=== PATIENT | female | born 1955 | race Caucasian/White ===

== ENCOUNTER → 2018-03-29 08:43 | Outpatient (CLI) | payer MEDICARE, MEDICAID, SELFPAY ==
[2018-03-29 12:45] LABS: Folate > 20.0 ng/mL (8.6-20.0); Vitamin B12 363 pg/mL (193-986)
[2018-04-01 10:24] LABS: CEA <0.5 ng/ml
== END ==
PROVIDERS: PCP Internal Medicine; Visit Provider Internal Medicine Hematology & Oncology
DX: C18.9 Malignant neoplasm of colon, unspecified (principal); G62.9 Polyneuropathy, unspecified
CPT/HCPCS: 36415; 82378; 82607; 82746

== ENCOUNTER 2018-05-07 15:09 | Outpatient (REF) | payer MEDICARE, MEDICAID, SELFPAY | END 2018-05-07 15:29 | LOC: NCHCN 15:09 | PROVIDERS: PCP Internal Medicine; Visit Provider Nurse Practitioner Family | DX: N39.0 Urinary tract infection, site not specified (principal) | CPT/HCPCS: 87077; 87086; 87186 ==

== ENCOUNTER 2018-08-02 12:12 | Outpatient (CLI) | payer MEDICARE, MEDICAID, SELFPAY ==
[2018-08-02 13:09] LABS: Abs Immature Grans 0.02 k/cumm (0.0-0.09); Absolute Basophil Count 0.02 k/cumm (0.0-0.2); Absolute Eosinophil Count 0.15 k/cumm (0.0-0.7); Absolute Lymphocyte Count 2.42 k/cumm (1.2-3.4); Absolute Monocyte Count 0.48 k/cumm (0.11-0.7); Absolute Neutrophil Count 5.26 k/cumm (1.2-6.7); Basophils % 0.2; Eosinophils % 1.8; HCT 43.2 % (36.0-46.0); HGB 14.3 g/dL (12.0-15.5); Immature Grans % 0.2; Mean Corp. HGB Concentration 33.1 g/dL (32.0-36.0); Mean Corpuscular Hemoglobin 29.7 pg (27.0-33.0); Mean Corpuscular Volume 89.8 fL (80-95); Mean Platelet Volume 9.6 fL (8.0-11.0); Monocytes % 5.7; Neutrophils % 63.1; Platelet Count 293 x1000/uL (130-400); RBC 4.81 m/cumm (4.00-5.20); White Blood Cell Count 8.35 k/cumm (4.4-10.8)
[2018-08-02 13:21] LABS: ALT 19 U/L (12-78); AST 17 U/L (15-37); Albumin 3.7 g/dL (3.4-5.0); Alkaline Phosphatase 107 U/L (46-116); Anion Gap 8.9 mmol/L (3-11); BUN 11 mg/dL (7-18); Bilirubin, Total 0.4 mg/dL (0.2-1.0); CO2 31.1 mmol/L (21.0-32.0); CREATININE 0.82 mg/dL (0.55-1.02); Calcium 9.2 mg/dL (8.5-10.1); Chloride 103 mmol/L (98-107); Glucose 108 mg/dL (70-100); Potassium 3.8 mmol/L (3.5-5.1); Sodium 143 mmol/L (136-145); Total Protein 7.3 g/dL (6.4-8.2)
[2018-08-05 09:49] LABS: CEA <0.5 ng/ml
== END 2018-08-02 12:32 ==
PROVIDERS: PCP Internal Medicine; Visit Provider Internal Medicine Hematology & Oncology
DX: C18.9 Malignant neoplasm of colon, unspecified (principal)
CPT/HCPCS: 36415; 80053; 82378; 85025

== ENCOUNTER 2018-09-20 10:18 | Outpatient (REF) | payer MEDICARE, MEDICAID, SELFPAY ==
[2018-09-20 19:34] LABS: Amylase 46 U/L (25-115); Anion Gap 6.3 mmol/L (3-11); BUN 11 mg/dL (7-18); CO2 31.7 mmol/L (21.0-32.0); CREATININE 0.92 mg/dL (0.55-1.02); Calcium 9.6 mg/dL (8.5-10.1); Chloride 104 mmol/L (98-107); Glucose 97 mg/dL (70-100); Lipase 188 U/L (73-393); Potassium 4.3 mmol/L (3.5-5.1); Sodium 142 mmol/L (136-145)
== END 2018-09-20 10:38 ==
LOC: NCHCN 10:18
PROVIDERS: PCP Internal Medicine; Visit Provider Nurse Practitioner Family
DX: R10.11 Right upper quadrant pain (principal)
CPT/HCPCS: 80048; 83690; 82150

== ENCOUNTER 2019-04-03 11:10 | Outpatient (CLI) | payer MEDICARE, MEDICAID, SELFPAY ==
[2019-04-03 11:52] LABS: HCT 46.1 % (36.0-46.0); HGB 15.1 g/dL (12.0-15.5); Mean Corpuscular Volume 88.7 fL (80-95)
[2019-04-03 11:53] LABS: Absolute Lymphocyte Count 1.54 k/cumm (1.2-3.4); Absolute Monocyte Count 0.32 k/cumm (0.11-0.7); Absolute Neutrophil Count 6.24 k/cumm (1.2-6.7); Atypical Lymphocytes % 3; Diff Comment Manual Differential; Mean Corp. HGB Concentration 32.8 g/dL (32.0-36.0); Mean Platelet Volume 10.1 fL (8.0-11.0); Platelet Count 345 x1000/uL (130-400); RBC Distribution Width 13.5 % (11.7-14.6); RBC Morphology Normal
[2019-04-03 12:42] LABS: ALT 18 U/L (12-78); AST 17 U/L (15-37); Albumin 4.2 g/dL (3.4-5.0); Alkaline Phosphatase 105 U/L (46-116); Anion Gap 10.8 mmol/L (3-11); BUN 13 mg/dL (7-18); Bilirubin, Total 0.6 mg/dL (0.2-1.0); CO2 27.2 mmol/L (21.0-32.0); CREATININE 0.93 mg/dL (0.55-1.02); Calcium 9.3 mg/dL (8.5-10.1); Chloride 104 mmol/L (98-107); Glucose 93 mg/dL (70-100); Potassium 4.5 mmol/L (3.5-5.1); Sodium 142 mmol/L (136-145); TSH 2.55 uIU/mL (0.36-3.74); Total Protein 7.5 g/dL (6.4-8.2)
[2019-04-07 09:18] LABS: CEA 0.7 ng/ml
== END 2019-04-03 11:30 ==
PROVIDERS: PCP Internal Medicine; Visit Provider Internal Medicine Hematology & Oncology
DX: C79.9 Secondary malignant neoplasm of unspecified site (principal); C18.9 Malignant neoplasm of colon, unspecified; E03.9 Hypothyroidism, unspecified
CPT/HCPCS: 36415; 80053; 82378; 84443; 85025

== ENCOUNTER 2020-10-01 20:18 | Outpatient (REF) | payer MEDICARE, MEDICAID, SELFPAY ==
[2020-10-01 20:01] LABS: FREE T4 0.86 ng/dL (0.76-1.46); TSH 3.27 uIU/mL (0.36-3.74)
[2020-10-03 17:20] LABS: T3, Total 112 ng/dL (97-169)
== END 2020-10-01 20:19 | disposition home or self-care (01) ==
LOC: NCHCN 20:18
PROVIDERS: PCP Internal Medicine; Visit Provider Physician Assistant
DX: E03.9 Hypothyroidism, unspecified (principal)
CPT/HCPCS: 84439; 84443; 84480

== ENCOUNTER 2020-11-10 11:50 | Outpatient (REF) | payer MEDICARE, MEDICAID, SELFPAY ==
[2020-11-10 16:24] LABS: Calculated LDL 129 mg/dL (<100); Cholesterol 216 mg/dL (<200); HDL Cholesterol 44 mg/dL (40-60); TSH 0.79 uIU/mL (0.36-3.74); Triglyceride 216 mg/dL (<150)
[2020-11-10 17:07] LABS: FREE T4 1.17 ng/dL (0.76-1.46)
== END 2020-11-10 11:51 | disposition home or self-care (01) ==
LOC: NCHCN 11:50
PROVIDERS: PCP Internal Medicine; Visit Provider Physician Assistant
DX: E03.9 Hypothyroidism, unspecified (principal)
CPT/HCPCS: 80061; 84439; 84443

== ENCOUNTER 2020-11-26 13:19 | Outpatient (REF) | payer MEDICARE, MEDICAID, SELFPAY ==
[2020-11-26 18:35] LABS: Iron 66 ug/dL (50-170); Total Iron Binding Capacity 293 ug/dL (250-450); Transferrin Sat 23 % (15-50)
[2020-11-26 19:03] LABS: Ferritin 161 ng/mL (8-252); Folate 17.9 ng/mL (8.6-20.0); Vitamin B12 356 pg/mL (193-986)
[2020-11-28 17:16] LABS: T3, Total 136 ng/dL (97-169)
[2020-11-29 08:48] LABS: Vitamin D 25 Total 15.9 ng/mL (30-100)
== END 2020-11-26 13:20 | disposition home or self-care (01) ==
LOC: NCHCN 13:19
PROVIDERS: PCP Internal Medicine; Visit Provider Physician Assistant
DX: R53.83 Other fatigue (principal); E55.9 Vitamin D deficiency, unspecified; K21.9 Gastro-esophageal reflux disease without esophagitis; N95.1 Menopausal and female climacteric states; C18.9 Malignant neoplasm of colon, unspecified
CPT/HCPCS: 82306; 82607; 82728; 82746; 83540; 83550; 84480

== ENCOUNTER 2021-06-15 09:46 | Outpatient (REF) | payer MEDICARE, MEDICAID, SELFPAY | END 2021-06-15 09:47 | disposition home or self-care (01) | LOC: NCHCN 09:46 | PROVIDERS: PCP Internal Medicine; Visit Provider Nurse Practitioner Family | DX: B37.0 Candidal stomatitis (principal) | CPT/HCPCS: 87070 ==

== ENCOUNTER 2021-06-28 15:35 | Outpatient (REF) | payer MEDICARE, MEDICAID, SELFPAY ==
[2021-06-30 13:16] LABS: COVID-19 RT-PCR UVMMC Result Negative (Negative)
== END 2021-06-28 15:36 | disposition home or self-care (01) ==
LOC: NCHCN 15:35
PROVIDERS: PCP Internal Medicine; Visit Provider Nurse Practitioner Family
DX: Z20.822 Contact with and (suspected) exposure to COVID-19 (principal); R09.89 Other specified symptoms and signs involving the circulatory and respiratory systems
CPT/HCPCS: U0003

== ENCOUNTER 2021-11-29 11:24 | Outpatient (REF) | payer MEDICARE, MEDICAID, SELFPAY ==
[2021-11-29 18:50] LABS: TSH (W/Ref FT4) 0.12 uIU/mL (0.36-3.74)
[2021-11-29 19:44] LABS: FREE T4 1.03 ng/dL (0.76-1.46)
== END 2021-11-29 11:25 | disposition home or self-care (01) ==
LOC: NCHCN 11:24
PROVIDERS: PCP Internal Medicine; Visit Provider Physician Assistant
DX: E03.9 Hypothyroidism, unspecified (principal)
CPT/HCPCS: 84439; 84443

== ENCOUNTER 2022-01-03 15:02 | Outpatient (REF) | payer MEDICARE, MEDICAID, SELFPAY ==
[2022-01-03 19:26] LABS: TSH (W/Ref FT4) 0.25 uIU/mL (0.36-3.74)
[2022-01-03 19:43] LABS: FREE T4 0.86 ng/dL (0.76-1.46)
== END 2022-01-03 15:03 | disposition home or self-care (01) ==
LOC: NCHCN 15:02
PROVIDERS: PCP Internal Medicine; Visit Provider Physician Assistant
DX: E03.9 Hypothyroidism, unspecified (principal)
CPT/HCPCS: 84439; 84443

== ENCOUNTER 2022-02-14 15:14 | Outpatient (REF) | payer MEDICARE, MEDICAID, SELFPAY ==
[2022-02-14 20:21] LABS: TSH (W/Ref FT4) 0.62 uIU/mL (0.36-3.74)
== END 2022-02-14 15:15 | disposition home or self-care (01) ==
LOC: NCHCN 15:14
PROVIDERS: PCP Internal Medicine; Visit Provider Physician Assistant
DX: E03.9 Hypothyroidism, unspecified (principal)
CPT/HCPCS: 84443

== ENCOUNTER 2022-12-26 17:53 | Outpatient (REF) | payer MEDICARE, MEDICAID, SELFPAY ==
[2022-12-26 20:00] LABS: ALT 15 U/L (14-59); AST 17 U/L (15-37); Albumin 4.3 g/dL (3.4-5.0); Alkaline Phosphatase 97 U/L (46-116); Anion Gap 6.9 mmol/L (3-11); BUN 10 mg/dL (7-18); Bilirubin, Total 0.7 mg/dL (0.2-1.0); CO2 29.1 mmol/L (21.0-32.0); Calcium 9.6 mg/dL (8.5-10.1); Chloride 105 mmol/L (98-107); Estimated GFR 62.13 (mL/min/1.73m2); Glucose 101 mg/dL (74-106); Potassium 4.6 mmol/L (3.5-5.1); Sodium 141 mmol/L (136-145); TSH 6.19 uIU/mL (0.36-3.74); Total Protein 8.2 g/dL (6.4-8.2)
== END 2022-12-26 17:54 | disposition home or self-care (01) ==
LOC: NCHCN 17:53
PROVIDERS: PCP Internal Medicine; Visit Provider Physician Assistant
DX: E03.9 Hypothyroidism, unspecified (principal); E55.9 Vitamin D deficiency, unspecified; R20.2 Paresthesia of skin
CPT/HCPCS: 80053; 84443

== ENCOUNTER 2023-03-01 09:33 | Outpatient (REF) | payer MEDICARE, MEDICAID, SELFPAY ==
[2023-03-01 20:00] LABS: ALT 14 U/L (14-59); AST 24 U/L (15-37); Albumin 4.3 g/dL (3.4-5.0); Alkaline Phosphatase 94 U/L (46-116); Anion Gap 6.9 mmol/L (3-11); BUN 14 mg/dL (7-18); Bilirubin, Total 0.5 mg/dL (0.2-1.0); CO2 32.1 mmol/L (21.0-32.0); Calcium 9.4 mg/dL (8.5-10.1); Calculated LDL 61 mg/dL (<100); Chloride 105 mmol/L (98-107); Cholesterol 133 mg/dL (<200); Estimated GFR 62.13 (mL/min/1.73m2); Glucose 94 mg/dL (74-106); HDL Cholesterol 47 mg/dL (40-60); Potassium 4.6 mmol/L (3.5-5.1); Sodium 144 mmol/L (136-145); TSH 1.19 uIU/mL (0.36-3.74); Total Protein 8.1 g/dL (6.4-8.2); Triglyceride 127 mg/dL (<150)
[2023-03-01 20:15] LABS: Vitamin D 25 Total 14.9 ng/mL (30-100)
== END 2023-03-01 09:34 | disposition home or self-care (01) ==
LOC: NCHCN 09:33
PROVIDERS: PCP Internal Medicine; Visit Provider Physician Assistant
DX: E03.9 Hypothyroidism, unspecified (principal); E55.9 Vitamin D deficiency, unspecified; E78.5 Hyperlipidemia, unspecified
CPT/HCPCS: 80053; 80061; 82306; 84443

== ENCOUNTER 2024-01-18 12:24 | Outpatient (REF) | payer MEDICARE, MEDICAID, SELFPAY ==
[2024-01-18 19:41] LABS: ALT 14 U/L (14-59); AST 16 U/L (15-37); Albumin 4.1 g/dL (3.4-5.0); Alkaline Phosphatase 89 U/L (46-116); Anion Gap 8.2 mmol/L (3-11); BUN 15 mg/dL (7-18); Bilirubin, Total 0.6 mg/dL (0.2-1.0); CO2 27.8 mmol/L (21.0-32.0); CREATININE 0.9 mg/dL (0.55-1.02); Calcium 9.5 mg/dL (8.5-10.1); Chloride 105 mmol/L (98-107); Estimated GFR 70.07 (mL/min/1.73m2); Glucose 103 mg/dL (74-106); LDL CHOLESTEROL 57 mg/dL (<100); Potassium 4.3 mmol/L (3.5-5.1); Sodium 141 mmol/L (136-145); TSH (W/Ref FT4) 1.06 uIU/mL (0.36-3.74); Total Protein 7.9 g/dL (6.4-8.2)
== END 2024-01-18 12:25 | disposition home or self-care (01) ==
LOC: NCHCN 12:24
PROVIDERS: PCP Internal Medicine; Visit Provider Physician Assistant
DX: E03.9 Hypothyroidism, unspecified (principal)
CPT/HCPCS: 80053; 83721; 84443

== ENCOUNTER 2024-03-17 11:32 | Outpatient (CLI) | payer MEDICARE, MEDICAID, SELFPAY ==
--- NOTE | 2024-03-17 11:00 | DI.RAD_ITS ---
Exam(s) XR PELVIS AP EXAM: XR PELVIS AP CLINICAL HISTORY: L Hip pain. TECHNIQUE: 2D digital imaging was performed. Single AP view. COMPARISON: DX XR PELVIS AND HIP LAT LT from 05/17/2023 FINDINGS: BONES: No acute fracture is present. No bony destructive lesion is seen. JOINTS: No dislocation present. Marked narrowing of the left hip joint space. Moderate periarticular spurring. Mild right hip joint space narrowing and periarticular spurring. SI joints and pubic sym physis are unremarkable. SOFT TISSUE: Normal. IMPRESSION: Stable advanced degenerative changes of the left hip. DATA REPOSITORY: RADIATION DOSE DELIVERED:
== END 2024-03-17 11:33 | disposition home or self-care (01) ==
LOC: DIORS 11:32
PROVIDERS: PCP Internal Medicine; Referring Provider Internal Medicine; Visit Provider Student in an Organized Health Care Education/Training Program
DX: M16.12 Unilateral primary osteoarthritis, left hip
CPT/HCPCS: 99203; 72170

== ENCOUNTER 2024-03-17 12:35 | Outpatient (CLI) | payer MEDICARE, MEDICAID, SELFPAY ==
[2024-03-17 12:52] LABS: HCT 44.2 % (36.0-46.0); HGB 14.2 g/dL (11.2-15.7); MCH 29.4 pg (27.0-33.0); MCHC 32.1 % (32.0-36.0); MCV 92 fL (80-95); MPV 9.4 fL (8.0-11.0); Platelet Count 306 10^3/uL (130-400); RBC 4.83 10^6/uL (3.93-5.22); RDW 12.8 % (11.7-14.6); RDW-SD 42.5 fL; WBC 7.48 10^3/uL (4.4-10.8)
[2024-03-17 13:13] LABS: Anion Gap 7.6 mmol/L (3-11); BUN 8 mg/dL (7-18); CO2 30.4 mmol/L (21.0-32.0); CREATININE 0.9 mg/dL (0.55-1.02); Calcium 9.1 mg/dL (8.5-10.1); Chloride 108 mmol/L (98-107); Estimated GFR 70.07 (mL/min/1.73m2); Glucose 102 mg/dL (74-106); Potassium 4.3 mmol/L (3.5-5.1); Sodium 146 mmol/L (136-145)
== END 2024-03-17 12:36 | disposition home or self-care (01) ==
LOC: LBO 12:35
PROVIDERS: PCP Internal Medicine; Visit Provider Student in an Organized Health Care Education/Training Program
DX: M16.12 Unilateral primary osteoarthritis, left hip (principal); Z01.818 Encounter for other preprocedural examination
CPT/HCPCS: 36415; 80048; 85027; 99203; 72170

== ENCOUNTER 2024-03-25 10:32 | Observation (INO) | payer MEDICARE, MEDICAID, SELFPAY ==
[2024-03-25] VITALS (26 sets, daily range): BP systolic 99–137; BP diastolic 54–87; PULSE 65–86; RESP 12–114; TEMP 35.8–36.5; O2SAT 92–99; BMI 27.4
[2024-03-25] MEDS: Gabapentin 300 MG CAP PO (09:00)
[2024-03-25] MEDS: Celecoxib 200 MG CAP 400 MG PO (09:00)
[2024-03-25] MEDS: Acetaminophen 500 MG TAB 1000 MG PO ×2 (09:00→19:43)
[2024-03-25] MEDS: Lactated Ringers 1,000 ML 80 ML IV (09:11)
--- NOTE | 2024-03-25 09:46 | W.ANESPRE ---
General Info Date of Service Date Performed: 03/25/24 Height: 5 ft 9 in Weight: 84.3 kg Body Mass Index (BMI): 27.4 Surgical Procedure: Operation Date: 03/25/24 11:05 Proposed Procedure Side Surgeon p Hip Total Hip Anterior Left Tee Ireland MD Meds Allergies and Home Medications Allergies Allergy/AdvReac Type Severity Reaction Status Date / Time oxaliplatin Allergy Severe Other (See Verified 03/25/24 08:52 Comment) Sulfa (Sulfonamide Allergy Intermediate Skin Rash Verified 03/25/24 08:52 Antibiotics) adhesive tape Allergy Unknown Other (See Verified 03/25/24 08:52 Comment) cefaclor (From Ceclor) Allergy Unknown Skin Rash Verified 03/25/24 08:52 clindamycin Allergy Unknown Skin Rash Verified 03/25/24 08:52 amoxicillin Allergy Skin Rash Verified 03/25/24 08:52 Penicillins Allergy Anaphylaxsi Verified 03/25/24 08:52 s Home Medication ?Medication ?Instructions ?Recorded levothyroxine 100 mcg tablet 100 mcg PO DAILY 10/30/16 acetaminophen 325 mg tablet 650 mg PO Q4H PRN 08/24/17 (Tylenol) estradiol 0.5 mg tablet 0.5 mg PO DAILY 08/24/17 ibuprofen 200 mg capsule 200 mg PO Q4H PRN 08/24/17 ondansetron 4 mg disintegrating 8 mg PO Q8H PRN 08/24/17 tablet (Zofran ODT) albuterol sulfate 90 mcg/actuation 2 puff inhalation Q6H PRN 01/29/23 aerosol inhaler (Ventolin HFA) cyclobenzaprine 5 mg tablet 5 - 10 mg PO QHS 01/29/23 fluticasone propionate 50 1 spray intranasal DAILY 01/29/23 mcg/actuation nasal spray,suspension (Allergy Relief (fluticasone)) omeprazole 20 mg capsule,delayed 20 mg PO DAILY 01/29/23 release rosuvastatin 10 mg tablet (Crestor) 10 mg PO DAILY 01/29/23 celecoxib 100 mg capsule (Celebrex) 100 mg PO BID 01/22/24 cholecalciferol (vitamin D3) 25 25 mcg PO DAILY 01/22/24 mcg (1,000 unit) capsule ergocalciferol (vitamin D2) 1,250 1,250 mcg PO QWEEK 01/22/24 mcg (50,000 unit) capsule Current Visit Medications: Current Medications Generic Name Dose Route Start Last Admin Trade Name Jerrell PRN Reason Stop Dose Admin Acetaminophen 1,000 mg 03/25/24 06:00 03/25/24 09:00 Acetaminophen 500 Mg Tab PO 03/25/24 23:59 1,000 mg PREOP CHLOE Administration Celecoxib 400 mg 03/25/24 06:00 03/25/24 09:00 Celecoxib 200 Mg Cap PO 03/25/24 23:59 400 mg PREOP CHLOE Administration Gabapentin 300 mg 03/25/24 06:00 03/25/24 09:00 Gabapentin 300 Mg Cap PO 03/25/24 23:59 300 mg PREOP CHLOE Administration Ringer's Solution 1,000 mls @ 80 mls/hr 03/25/24 06:00 03/25/24 09:11 IV 03/25/24 23:59 80 mls/hr INFUSION CHLOE Administration Cefazolin Sodium/Dextrose 2 gm in 50 mls @ 100 mls/hr 03/25/24 06:00 Ancef Duplex IVPB 03/25/24 23:59 PREOP CHLOE Tranexamic Acid/Sodium Chloride 1,000 mg in 100 mls @ 600 mls/hr 03/25/24 06:00 IVPB 03/25/24 23:59 PREOP CHLOE IV Miscellaneous Supplies 1 each 03/25/24 06:00 Iv Access IV 03/25/24 23:59 DIRECTED CHLOE Sodium Chloride 0 ml 03/25/24 06:00 Normal Saline Flush 10 Ml Syr IV 03/25/24 23:59 PRN PRN Sodium Chloride 0 ml 03/25/24 06:00 Normal Saline 10 Ml Vial IJ 03/25/24 23:59 DIRECTED PRN Sterile Water 0 ml 03/25/24 06:00 Water,Injection,Sterile 10 Ml Vial IJ 03/25/24 23:59 DIRECTED PRN PFSH Active Problems Active Problems: Problem Status Onset Code Osteoarthritis of left hip Acute M16.12 Medical History Medical History Depression with anxiety Goiter, nontoxic, multinodular Vitamin D deficiency Hearing loss, bilateral COLE (obstructive sleep apnea) Adenocarcinoma of cecum Abnormal mammogram of right breast Hot flashes Liver nodule GERD (gastroesophageal reflux disease) Left hip pain Chronic low back pain Chronic sinusitis Osteoarthritis Left knee pain Aortic dilatation Rib pain on left side Left breast mass Breast pain, left COVID-19 Left groin pain Family history of heart disease Sinusitis Lumbosacral spondylosis with radiculopathy Hx of colon cancer, stage IV Hypothyroidism Fibromyalgia 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 Essential tremor Depression with anxiety RA (rheumatoid arthritis) Surgical History Surgical History S/P BONNIE-BSO (total abdominal hysterectomy and bilateral salpingo-oophorectomy) ex-lap with omentectomy and HIPEC 02/2017 Mediport placement 10/2016 Abdominal hysterectomy Colectomy Right Hemicolectomy 09/2016 Bilateral salpingectomy with oophorectomy Tobacco Smoking/Tobacco Use Status: Never Alcohol Alcohol Intake: current Alcohol intake frequency: holidays/special occasions only Substance Use Substance use: Never Substance use type: does not use Vital Signs and Lab Results Vital Signs Most Recent Vital Signs in EMR: Most Recent Vital Signs Temp Pulse Resp BP Pulse Ox 36.2 C L 78 16 137/87 97 03/25/24 08:35 03/25/24 08:35 03/25/24 08:35 03/25/24 08:35 03/25/24 08:35 Lab Results Blood Type / Crossmatch: No Data to Display Complete Blood Count: White Blood Count 7.48 10^3/uL (4.4-10.8) 03/17/24 12:07 Red Blood Count 4.83 10^6/uL (3.93-5.22) 03/17/24 12:07 Hemoglobin 14.2 g/dL (11.2-15.7) 03/17/24 12:07 Hematocrit 44.2 % (36.0-46.0) 03/17/24 12:07 Platelet Count 306 10^3/uL (130-400) 03/17/24 12:07 Complete Metabolic Panel: Sodium 146 mmol/L (136-145) H 03/17/24 12:07 Potassium 4.3 mmol/L (3.5-5.1) 03/17/24 12:07 Chloride 108 mmol/L (98-107) H 03/17/24 12:07 Carbon Dioxide 30.4 mmol/L (21.0-32.0) 03/17/24 12:07 BUN 8 mg/dL (7-18) 03/17/24 12:07 Creatinine 0.9 mg/dL (0.55-1.02) 03/17/24 12:07 Est GFR (CKD-EPI 2020) 70.07 (mL/min/1.73m2) 03/17/24 12:07 Calcium 9.1 mg/dL (8.5-10.1) 03/17/24 12:07 Glucose 102 mg/dL (74-106) 03/17/24 12:07 Liver Function Panel: No Data to Display Coagulation Panel: No Data to Display Cardiac Panel: No Data to Display Arterial Blood Gas: No Data to Display Venous Blood Gas: No Data to Display Pancreas Panel: No Data to Display Thyroid Panel: No Data to Display Infectious Disease: No Data to Display Blood Cultures: No Data to Display Toxicology Panel: No Data to Display Anesthesia Assessment and Plan Anesthesia History Personal History: No History of Anesthesia Complications Family History: No Family History of Anesthesia Complications Exercise Tolerance Exercise Tolerance: Metabolic Equivalents>4 Cardiac & Pulmonary Exam Cardiac Exam: Normal S1/S2 Heart Sounds Pulmonary Exam: Clear Bilateral Breath Sounds Implantable Cardiac Device Does patient have a Pacemaker or an ICD?: No Airway Exam Known Difficult Airway: No Mallampati Class: 2 Mouth Opening: Normal (> 3cm) Thyromental Distance: Greater than 3 cm Neck Range of Motion: Full ROM Neck Circumference: Normal Teeth Condition: Removable Dentures/Plates Upper and Removable Dentures/Plates Lower ASA Classification ASA Score: ASA 2 Emergency Case?: No NPO Status NPO Status: NPO Clears >2 hours, Solids >8 hours Anesthesia Plan Resuscitation Status: Full Code Anesthesia Technique: Spinal Anesthesia Airway Planned: Natural Airway Monitors Used: Standard Monitors Preoperative Comments:: Difficult/failed SAB in the past, will plan to attempt x2 today and then proceed to GA if necessary.
[2024-03-25] MEDS: ceFAZolin 2 GM/50 ML BAG IVPB (12:26)
[2024-03-25] MEDS: TRANEXAMIC ACID/SOD. CHL. 1,000 MG/100 ML BAG 600 MG IVPB (12:32)
--- NOTE | 2024-03-25 13:26 | DI.RAD_ITS ---
Exam(s) XR HIP LT IN OR EXAM: XR HIP LT IN OR CLINICAL HISTORY: left hip osteoarthritis. TECHNIQUE: 2D and realtime digital imaging was performed. COMPARISON: CR XR PELVIS AP from 03/17/2024 FINDINGS: A hard copy image shows placement of a left hip prosthesis. The alignment appears satisfactory. Please see procedure note for details. Fluoro time: 54.7seconds RADIATION DOSE DELIVERED: Ka,r=5.7 mGy
--- NOTE | 2024-03-25 13:40 | ROE_ITS ---
Date of service: 03/25/24 Time of Service: 12:20 Operative Note Operative Note DATE OF PROCEDURE: 03/25/24 PRE-OP DIAGNOSIS: Left Hip Osteoarthritis POST-OP DIAGNOSIS: same PROCEDURE: Left Anterior Total Hip Arthroplasty with Intraoperative Navigation SURGEON: Tee Ireland OFFSET PRINTER: Delia Raygoza ANESTHESIA TYPE: Spinal Refer to Anesthesia Record ESTIMATED BLOOD LOSS: 550 PATHOLOGY: none sent TOURNIQUET TIME: 0 COMPLICATIONS: None Patient was transported to: PACU Patient's condition: stable Implants: 1. Depuy [place] Acetabular Component, 58mm 2. Depuy Acetabular Liner, [id number] 3. Depuy Actis Standard Collared Femoral Stem, Size 6 4. Depuy Altrx Ceramic Femoral Head, Size 36+8.5mm Indications: I have seen Terra in clinic for symptoms of hip arthritis, confirmed with radiographic findings. She has exhausted nonoperative methods and was having significant limitations in daily function and desired better function and less pain. I discussed the technical details of a hip replacement. I explained the risks of the procedure to include, but not limited to, bleeding, infection, pain, stiffness, fracture, damage to nerves and vessels, damage to muscles and tendons, loosening, instability, leg length inequality, need for repeat procedure, blood clot and cardiopulmonary demise. Despite these risks, Terra elected to proceed. Findings: There was significant signs of arthritis throughout the hip involving the femoral head/neck and acetabulum. Procedure Description: Terra was greeted in the preoperative holding area where the correct side was identified and marked. The consent was reviewed with the patient and signed. The history and physical was updated. All questions were answered. She was taken back to the operating room. A spinal anesthestic was then administered. The feet were wrapped with cast padding and Coban and then placed into the boot liners and then into the boots. Care was taken to protect the skin and make sure the heels were fully down and the boots were stable. The patient was then positioned onto the HANA table. Both legs were held in a neutral position. SCDs were applied. The patient was then slid down onto a peroneal post. Prophylactic antibiotics in the form of Cefazolin were administered. 1g of Tranxemic Acid was given intravenously within 30 minutes of incision. The left leg was then prepped with Chloraprep and draped in a standard fashion. A second prep with Chloraprep was performed prior to placement of a shower-curtain type drape with Iodine impregnated skin pr otection. A timeout to confirm correct identity, side and site, procedure, allergies, anesthesia, and medical concerns was performed. An obliquely oriented incision was made starting lateral to the ASIS and running distal over the Tensor Fascia Katie (TFL) muscle belly toward the fibular head, approximately 10cm. The skin and soft tissue was dissected sharply, through Alex?s fascia, and to the fascia of the TFL. With the fascia and superior border of the IT band identified, the fascia was incised with a new knife just above any perforators from the IT band. The TFL muscle belly was bluntly dissected away from the fascia and moved laterally. The fat between TFL and rectus was identified to ensure the dissection was not within the TFL. Blunt dissection created space between abductors and the capsule and retractor was placed over the lateral femoral neck. The fibers of the rectus femoris tendon were identified and these were freed from the anterior capsule. A second cobra retractor was placed around the medial femoral neck. The TFL was further retracted laterally to show the deep fascia. Careful dissection through this layer identified three main crossing vessels of the lateral femoral circumflex. These were cauterized in multiple locations and then cut without any noticeable bleeding. The TFL was further released bluntly from the deep fascia to expose anterior hip capsule and fat A soft tissue retractor was then placed beneath the TFL and against sartorius and medial soft tissues to protect and retract the soft tissues. A T-capsulotomy was then performed starting at the superior lateral acetabulum and moving distally to the intertrochanteric ridge. These capsular flaps were tagged with a No. 1 Ethibond and elevated from within. The capsular flaps were released to the shoulder of the lateral neck and to the lesser trochanter to give excellent visualization of the proximal femur. A neck osteotomy was performed using an oscillating saw based on preoperative templates. This cut started in the shoulder and of the lateral neck and exited medially. The saw was at all times directed medially to avoid injury to the greater trochanter. Gross traction was applied to the leg and the osteotomy opened. The femoral head was removed with a corkscrew, making sure to protect the TFL on its exit. Traction was released after head removal. This was measu red on the back table to determine the starting reamer size. Portions of the rectus obscuring visualization were minimally elevated off the superior acetabulum. An anterior retractor was placed over the anterior wall between capsule and labrum and attached to the Gripper retraction system. The femur was rotated to 90 degrees and medial capsule was fully released until the lesser trochanter was palpable and visible; the femur was returned to 30 degrees. A posterior retractor was placed similarly between capsule and labrum. This provided excellent visualization. The contents of the cotyloid fossa were removed with electrocautery and the labrum was removed with a knife. There was a notable floor osteophyte. There was significant chondromalacia of the superior acetabulum. Acetabular reaming began with a 52mm reamer. This first reaming was directed anterior to posterior and medial to get down to the true floor. This was inspected and reamed until the true floor was reached. The anterior retractor was then released and entry and exit was provided by traction on the capsular flaps. I then reamed sequentially up to a 58mm reamer where good fit was obtained. The larger reamers were oriented based on anatomical reference of the anterior and lateral rosales to ensure proper abduction and anteversion. Positioning and size was confirmed with the fluoroscopy. A 58mm Depuy [place] acetabular component was selected. The acetabulum was reamed around the periphery with the selected acetabular size to prevent a rim fit. The deep tissues were irrigated. The acetabular component was then impacted in a position of about 40-45 degrees of abduction and 15-20 degrees of anteversion, using the patient?s anatomy as the ultimate landmark. Fluoroscopy was used to confirm this. There was excellent citizenship instructor of the acetabular component and the inserting handle was removed. The acetabular liner, Depuy [id number] polyethylene liner, was inserted and lined up with the tines of the acetabular component. There was no soft tissue interposition. The liner was then impacted into position and confirmed to be well-seated. A portion of the sindi-articular cocktail was then injected around the acetabulum into the capsule and periosteum. This cocktail consisted of 123mg of Ropivacaine, 0.25mg of Epinephrine, 0.04mg of Clonidine, and 15mg of Ketorolac, diluted to 50cc. The leg was rotated to 120 degrees. Any remaining medial capsule was released until the lesser trochanter was easily palpable. A retractor was placed medially. The lateral capsule was further released into the shoulder to allow access to the greater trochanter. A Lipscomb retractor was placed over the greater trochanter which allowed the trochanter to flip in front of the capsule for excellent exposure. The leg was brought down into maximal extension and 20 degrees of adduction while ensuring there was no impingement on the acetabulum. Any remnant capsule within the trochanter was released. Piriformis and obturator externis were identified and protected. There was excellent access to the proximal femur. The lateral neck remnant was removed with a rongeur. A blunt canal probe was used to identify the canal and trajectory for later broaching. A box osteotome initiated the broach course. A small curved rasp and a curved curette were used to work laterally. Broaching then began with a starter Actis broach. This was inserted manually around the trochanter and into the canal before mallet blows. The broach was seated to a few millimeters below the cut level based on the neck cut and the preoperative template. Sequential broaching was continued with the [employer] pneumatic broaching device until a tight fit was obtained with good rotational control of the femur. A trial standard neck was inserted along with a +5 trial head. The leg was brought out of extension and adduction and then reduced with traction and internal rotation. The leg was stable anteriorly in a position of 30 degrees of extension and 90 degrees of external rotation. Fluoroscopy was used to ensure there was no fracture and the stem was seated well. Leg lengths were checked with an AP pelvis and pelvic reference points. Fonix navigation system was used to confirm appropriate positioning and leg length and offset. This over-crrected the leg length and undercorrected the total offset, improved with a +8.5mm head and advanced 6-7mm. Once content with the desired offset and leg lengths, the leg was brought back into extension, external rotation and adduction. The broaching was advanced 6 to 7 mm and the surface planed. The periosteum and surrounding tissue was injected with remaining portion of the sindi-articular cocktail. The proximal femur was irrigated as well as the deep tissues. The [employer] thredUPis standard collared stem, size 6, was then manually inserted into the proximal femur making sure to control rotation. It was then malleted into position with light blows, giving breaks to allow bone expansion and decrease risk of fracture. The selected Depuy Altrx Ceramic Head, size 36+8.5mm, was then placed onto the clean and dry trunnion and secured with impaction onto the tapered fit. The leg was brought back out of extension and adduction and reduced with traction and internal rotation. Stability was confirmed with no shuck at 90 degrees of external rotation and 30 degrees of extension. No impingement through range of motion arc. Final x-ray images were obtained with fluoroscopy to confirm adequate positioning and no intraoperative fracture. There was notable oozing during the case. There is no specific bleeding. Most the bleeding seem to be coming from the proximal femur. She remained stable during the case. The deep tissues were thoroughly irrigated with Surgiphor, betadine solution. This was allowed to sit in the wound for 3 minutes before being thoroughly irrigated out with normal saline. The capsule was then reapproximated with the previously placed Ethibond sutures. The TFL fascia was finally closed with a No. 2 Stratafix, barbed suture. Deep tissues were then reapproximated with 0 Vicryl and a running 2-0 Vicryl. The skin was closed with a running 4-0 Monocryl in a subcuticular fashion. This was reinforced with skin glue. A Mepilex silver dressing was applied. At the end of the case, all counts were correct. Terra was transferred to the hospital bed without difficulty and suffering no apparent complication. Terra has a good prognosis. Physical therapy will start today and without restrictions, weight-bearing as tolerated. Aspirin 81mg BID will be used for DVT prophylaxis.
[2024-03-25] MEDS: oxyCODONE 5 MG TAB PO ×2 (14:59→23:24)
--- NOTE | 2024-03-25 15:04 | W.ANESPOSTOP ---
Postoperative Evaluation Date, Time and Location Date Performed: 03/25/24 Time Performed: 15:04 Patient Location: Day Surgery Unit Vital Signs Most Recent Imported Vital Signs: Most Recent Vital Signs Temp Pulse Resp BP Pulse Ox 35.8 C L 70 16 119/71 94 03/25/24 14:38 03/25/24 14:38 03/25/24 14:38 03/25/24 14:38 03/25/24 14:38 Pain Score Most Recent Pain Score: Most Recent Pain Score Pain Level 0 03/25/24 14:38 Assessment Mental Status: Awake (Alert & Oriented to Patient Baseline) Airway and Respiratory Function: Patent airway with normal (patient baseline) respiratory exam Cardiovascular Function: Hemodynamically Stable Hydration Status: Adequately Hydrated Nausea & Vomiting: No Nausea or Vomiting Pain: Pain is Moderate or Severe Postoperative Pain Management: Pain being addressed with medication Peripheral Nerve Block: Patient did not receive a nerve block
[2024-03-25] MEDS: Normal Saline Flush 10 ML SYR IV ×4 (15:22→19:44)
[2024-03-25] MEDS: fentaNYL 100 MCG/2 ML VIAL IVP ×2 (15:22→15:41)
[2024-03-25] MEDS: Methocarbamol 500 MG TAB PO (15:36)
--- NOTE | 2024-03-25 15:50 | IN_ITS ---
PT Notes Visit Reasons: Left hip DJD Inpatient Physical Therapy Evaluation Date: 03/25/2024 Referring Doctor: Dr Ireland PT Orders: PT CONSULT: Evaluate post op for safe discharge to home Precautions: WBAT LLE Patient Profile/Admitting Diagnosis: Terra is 68 yo female referred for PT evaluation s/p L DRE anterior approach on 03/25/2024 under spinal anesthesia d/t OA. Post op complicated by pain, nausea and lightheadedness. PMHX: Depression with anxiety,Goiter, nontoxic, multinodular,Vitamin D deficiency Hearing loss, bilateral,COLE (obstructive sleep apnea),Adenocarcinoma of cecum,Abnormal mammogram of right breast Hot flashes,Liver nodule,GERD (gastroesophageal reflux disease),Left hip pain,Chronic low back pain,Chronic sinusitis,Osteoarthritis Left knee pain,Aortic dilatation,Rib pain on left side,Left breast mass,Breast pain, left; COVID-19;Left groin pain;Family history of heart disease; Sinusitis;Lumbosacral spondylosis with radiculopathy;Hx of colon cancer, stage IV;Hypothyroidism;Fibromyalgia Neuropathy due to chemotherapeutic drug;Essential tremor- hands;Depression with anxiety;RA (rheumatoid arthritis) Social History/Home Situation: Patient lives with her in a ranch style home with 3 steps to enter with bilateral rails. She is independent ambulating independent ADLs. She is retired. Her works full-time. Her sister will be staying with her during the day. Current Functional Limitations: impaired bed mobility, transfers, ambulation, ADLs, IADLs Equipment Owned/DME: cane/RW Subjective: Objective: General Observation: pale female semi-reclined, drowsy Mental Status: A+Ox4 Pain: Left hip 5/10 on Numeric Pain scale Vital Signs: 124/64 initially; 98/58 post standing ( nauseous/ lightheaded) ROM: Left Lower Extremity:hip flexion 100degrees ; abduction 15 degrees , knee and ankle WNL Strength: BUE: grossly 5/5 Right Lower Extremity: 5/5 Left Lower Extremity: hip flexion,abduction, extension3-/5; knee ext: >/= to 3/5 ankle 3/5 Sensation: intact to light touch and deep pressure LLE Bed Mobility/Transfers: supine - sit Min A for LE sit-supine min A for LE scooting Independent sit - stand CGA stand to sit CGA transfer with FWW min A Gait: with FFW 2 steps min A step to pattern with small steps. pt became nauseuous and lightheaded ambulation discontinued Stairs: dependent / unable at this time d/t lightheadedness Balance: Static Sitting: Normal Dynamic Sitting: good- Static Standing: Fair Dynamic Standing: Fair - Special Tests: Mobility Limitations Standardized Measure [facility] AM-PAC 6 clicks Basic Mobility Inpatient Short Form: Raw Score: 14 Standardized Score: [] CMS Score: 61.91% Informed Consent/Education: Patient instructed in purpose of PT consult and plan of care. Patient instructed in initial home exercise program including ankle pumps, glutes sets, quad sets and seated long arc quads. Assessment: Patient is a 68year old female referred to physical therapy services with the diagnosis of L DRE. Patient presents with clinical signs and symptoms consistent with post surgical intervention, as demonstrated by the following impairment level findings: pain, ROM, strength, balance. Impairments are contributing to the following functional limitations: AMPAC score. Due to postop pain nausea and lightheadedness, pt is not recommended to return to home at this time. MD is in agreement. Patient is assessed as a [X] Low 38853 [] Moderate 14404 [] High 33786 complexity based on the following: History: [X] Examination: [X] Presentation: [X] Decision Making: [X] Goals: Goals X1 -2 days 1. Supine-Sit [independent] 2. Sit-Supine [independent] 3. Sit-Stand [independent] 4. Stand-Sit [independent] 5. Bed-Chair [supervision with FFW] 6. Chair-Bed [supervision with FFW] 7. Gait [supervision with FF W greater than 50 feet x 2] 8. Stairs [supervised 3 stairs with 2 rails] 9. Independent with home exercise program [] 10.Balance good minus Plan of Care/Treatment Plan: 1-2x/days Plan of care has been reviewed with the SOCIAL MEDIA DESIGNER providing the service under Physical Therapy direction. Initiate Physical Therapy intervention for strengthening, bed mobility, transfers, gait, stairs, balance training, use of assistive device. DISCHARGE RECOMMENDATIONS: [x] Home with outpatient PT when medically stable TREATMENT CODE/TIME: [04859 x1/ 32 minutes Please sign an return this page within 30 days if you agree with the above POC. Thank you! Physician Signature Date [facility]
--- NOTE | 2024-03-25 16:06 | SUR.PHASEII ---
Addendum entered by Sophia Church RN 03/25/24 17:12: 1700 Pt was not able to complete PT exercises, stood at bedside and became very nauseous. visited pt and placed orders for admission to [facility]. Addendum entered by Sophia Church RN 03/25/24 16:50: 1630 Pt states pain is 7/10 and more tolerable. Pt tolerating PO intake well. Pt attempting to work with PT, visited pt and encouraged her to get up and work with PT as this may help her pain significantly. Pt removed from continuous cardiac and spO2 monitoring Original Note: 1438 Pt returned to DSU, phase 2. Sleepy but arousable. VS WDL. 1458 Pt writing in pain, unable to use numeric scale for pain level. Unable to sit still. VS still WDL. 10mg Oxycodone PO PRN given to patient per order set. and SONYA notified. 1515 Kris HASSAN assessed patient, ordered IVP Fenanyl and PO Robaxin for patient. Pt placed on continuous cardiac and spO2 monitoring. 1522 [place] MOORE administered 50mcg Fentanyl IVP per order set. 1536 Sophia MOORE administered 500mg Robaxin PO per order set. 1541 [place] MOORE administered 25mcg Fentanyl IVP per order set.
[2024-03-25] MEDS: ceFAZolin 1 GM/50 ML BAG IVPB (17:10)
[2024-03-25] MEDS: Tranexamic Acid 650 MG TAB 1300 MG PO (17:24)
[2024-03-25] MEDS: Ketorolac 15 MG/ML VIAL IV (18:32)
[2024-03-25] MEDS: Aspirin E.C. 81 MG TABEC PO (19:42)
[2024-03-26] MEDS: ceFAZolin 1 GM/50 ML BAG IVPB ×2 (01:11→07:56)
[2024-03-26] MEDS: Ketorolac 15 MG/ML VIAL IV ×2 (01:11→09:54)
[2024-03-26] MEDS: Normal Saline Flush 10 ML SYR IV (01:12)
[2024-03-26 03:35] VITALS: BP 120/69; PULSE 60; RESP 18; TEMP 36.4; O2SAT 96
[2024-03-26] MEDS: Levothyroxine 100 MCG TAB PO (06:00)
[2024-03-26 07:29] VITALS: BP 101/64; PULSE 70; RESP 18; TEMP 36.6; O2SAT 95
[2024-03-26] MEDS: Fluticasone NASAL SPRAY 16 GM BTL NS (08:00)
[2024-03-26] MEDS: oxyCODONE 5 MG TAB PO (08:01)
[2024-03-26] MEDS: Dexamethasone 4 MG TAB PO (08:01)
[2024-03-26] MEDS: Acetaminophen 500 MG TAB 1000 MG PO (08:01)
[2024-03-26] MEDS: Omeprazole 20 MG CAPCR PO (08:01)
[2024-03-26] MEDS: Rosuvastatin 10 MG TAB PO (08:01)
[2024-03-26] MEDS: Aspirin E.C. 81 MG TABEC PO (08:01)
--- NOTE | 2024-03-26 09:05 | DSE_ITS ---
Date of service: 03/26/24 Time of Service: 07:30 Discharge Plan Disposition Patient Disposition: Home Condition: Good Discharge Details Reason For Visit: Left hip DJD Admit Date/Time: 03/25/24 17:00 Admit Provider: Tee Ireland Attending Provider: Tee Ireland Primary Care Provider: [facility] Course Hospital Course: Patient was admitted to the medical/surgical floor following the procedure. The surgery was tolerated well without any notable medical, surgical, or anesthetic complications, however, she had notable lightheadedness and nausea postoperatively.. Mobilization began postoperatively but was postponed to postop day #1 where she did much better and was able to ambulate overnight with nursing. She was voiding spontaneously. Vitals were stable. Physical therapy worked with the patient and was cleared for discharge home. No acute medical issues. Pain was controlled on oral regimen. Home Meds and New Rx's Prescriptions: New celecoxib [Celebrex] 200 mg capsule 200 mg PO BID PRNQty: 60 0RF Rx Instructions: Take one tablet twice daily for pain and inflammation aspirin 81 mg tablet,delayed release (DR/EC) 81 mg PO BID 30 Days Qty: 60 0RF acetaminophen 500 mg tablet 1,000 mg PO Q8H PRN Qty: 90 0RF Rx Instructions: Take two tablets up to every 8 hours as needed for pain dexamethasone 4 mg tablet 4 mg PO DAILY Qty: 2 0RF Rx Instructions: Take one tablet once daily for two days docusate sodium [Colace] 100 mg capsule 100 mg PO BID Qty: 30 0RF oxycodone 5 mg tablet 5 mg PO Q6H PRNQty: 12 0RF Rx Instructions: Take one tablet up to every 6 hours as needed for severe postoperative pain Continued albuterol sulfate [Ventolin HFA] 90 mcg/actuation HFA aerosol inhaler 2 puff inhalation Q6H PRN fluticasone propionate [Allergy Relief (fluticasone)] 50 mcg/actuation spray,suspension 1 spray intranasal DAILY Rx Instructions: administer into each nostril omeprazole 20 mg capsule,delayed release(DR/EC) 20 mg PO DAILY cyclobenzaprine 5 mg tablet 5 - 10 mg PO QHS rosuvastatin [Crestor] 10 mg tablet 10 mg PO DAILY ergocalciferol (vitamin D2) 1,250 mcg (50,000 unit) capsule 1,250 mcg PO QWEEK cholecalciferol (vitamin D3) 25 mcg (1,000 unit) capsule 25 mcg PO DAILY acetaminophen [Tylenol] 325 MG tablet 650 mg PO Q4H PRN estradiol 0.5 MG tablet 0.5 mg PO DAILY levothyroxine 100 MCG tablet 100 mcg PO DAILY Discontinued celecoxib [Celebrex] 100 mg capsule 100 mg PO BID ibuprofen 200 MG capsule 200 mg PO Q4H PRN Discharge Instructions Additional Instructions: Total Hip Discharge Instructions Activity: The most important activity is to walk. You should try to take short walks a few times a day. You have no restrictions on movement or positioning, but do not try to force what you do. You will find some stiffness and weakness with hip flexion (lifting your knee). Do not try to strengthen this too early, continue to practice walking and stairs and this will come. - Outpatient physical therapy can be helpful to help return you to a normal gait and improve your flexibility and strength. This can start around 2 weeks. For some patients, it?s not necessary. Usually this is determined at the time of discharge or at the first post-operative visit. - You should wear the ROMERO hose on both legs for 2 weeks. Dressing: Keep the surgical dressing in place for at least one week. After the first week it may be removed and replace with light gauze and tape or nothing. It may get wet after 3 days but avoid soaking the dressing. If it gets wet, just lightly pat dry. It is important to always keep some gauze between skin folds, especially when you are sitting. Spend some time with the wound exposed when you are lying flat as the incision does wrinkle onto itself. Medications: - You should take Tylenol and an anti-inflammatory Celebrex as your primary pain control medications. If the Celebrex is too expensive or not covered, please call the office for another alternative (Advil/Ibuprofen or Naproxen/Aleve). - You have been prescribed a stronger pain medication Oxycodone for breakthrough pain, take as needed as prescribed. - You take a stomach acid reduction agent Omeprazole at baseline - continue with this medication to help reduce stomach acid and reflux. - You have also been prescribed Decadron to help with post-operative nausea and pain. You will take this for two days starting tomorrow. - You will be taking Aspirin 81mg twice a day for DVT prevention unless instructed otherwise. - If you have constipation you should take Colace (which has been prescribed) or Miralax (which is available [id number]). It takes most people 3-4 days to have a bowel movement. Follow-up: 2 weeks If you have any acute concerns or questions, please do not hesitate to contact the office at [phone]. You may contact Dr. Ireland with any questions after hours through the hospital at [phone] or on his cell phone at [phone]. Stand Alone Forms: Anesthesia Discharge Inst., Karol Carlos ([facility]U) Referrals: Tee Ireland MD [ [facility]YSICIAN] - 04/07/24 11:00 am Activity:: Activity as Tolerated Equipment/Supplies:: Walker Diet:: As Tolerated Discharge Orders Discharge Orders: Discharge Order (Routine); Ordered 03/26/24 Ordered By: Tee Ireland DS: Summary Time Spent with Patient providing and/or coordinating discharge services: Less than 30 minutes Status at Discharge Functional status at discharge: uses cane/walker Overall status at discharge: patient is progressing back to baseline Mental Status: mental status grossly normal Speech and Movement: speech and movement normal Mood: congruent mood Affect: normal affect Quality:SDOH Health Related Social Needs: No Data to Display Exam Narrative Exam Narrative: Resting in the bed. No acute distress. Alert and orient x 3. Evaluation of the left hip shows a clean dry and intact dressing. Minimal ecchymosis. No pain with hip flexion, internal rotation and external rotation. And station intact to light touch over the lateral fem cutaneous, femoral, and sided nerve distributions Psych Mental Status: mental status grossly normal Speech and Movement: speech and movement normal Mood: congruent mood Affect: normal affect DS: Data Vitals/I&O Vitals and I&O: Vital Signs Temperature 36.6 C 03/26/24 07:29 Temperature Source Temporal Artery Scan 03/26/24 07:29 Pulse 70 03/26/24 07:29 Pulse Rhythm Regular 03/25/24 20:09 Pulse 68 03/25/24 14:26 Respiratory Rate 18 03/26/24 07:29 Respiratory Effort Normal, Non-Labored 03/25/24 20:09 Respiratory Depth Normal 03/25/24 20:09 Respiratory Pattern Normal 03/25/24 20:09 Blood Pressure 101/64 03/26/24 07:29 Blood Pressure Mean 99 03/25/24 16:00 Blood Pressure Position Supine 03/25/24 16:00 Pulse Oximetry 95 03/26/24 07:29 Respiratory End-tidal CO2 32 03/25/24 14:26 Oxygen Delivery Method Room Air 03/26/24 07:29 Oxygen Flow Rate 0 03/26/24 07:29 Pain Level 4 03/26/24 08:01 Intake & Output 03/25/24 03/25/24 03/26/24 11:59 23:59 11:59 Intake Total 1700 / 1700 250 / 250 Output Total 650 / 650 400 / 400 Balance 1050 / 1050 -150 / -150 Weight 84.3 kg 86.693 kg Intake: IV 1200 / 1200 50 / 50 Oral 500 / 500 200 / 200 Output: Urine 100 / 100 400 / 400 Emesis 0 / 0 Estimated Blood Loss 550 / 550 Other: Urine Color Yellow Yellow Urine Appearance Clear Clear Comment voided patient voided in commode, mixed with toilet paper, unable to measure. Emesis Description None Voiding Methods Bedside Commode Bedside Commode [facility] All Active Problems History of total left hip arthroplasty (Acute 03/25/24) Medical History Depression with anxiety Goiter, nontoxic, multinodular Vitamin D deficiency Hearing loss, bilateral COLE (obstructive sleep apnea) Adenocarcinoma of cecum Abnormal mammogram of right breast Hot flashes Liver nodule GERD (gastroesophageal reflux disease) Left hip pain Chronic low back pain Chronic sinusitis Osteoarthritis Left knee pain Aortic dilatation Rib pain on left side Left breast mass Breast pain, left COVID-19 Left groin pain Family history of heart disease Sinusitis Lumbosacral spondylosis with radiculopathy Hx of colon cancer, stage IV Hypothyroidism Fibromyalgia 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 Essential tremor Depression with anxiety RA (rheumatoid arthritis) Surgical History S/P BONNIE-BSO (total abdominal hysterectomy and bilateral salpingo-oophorectomy) ex-lap with omentectomy and HIPEC 02/2017 Mediport placement 10/2016 Abdominal hysterectomy Colectomy Right Hemicolectomy 09/2016 Bilateral salpingectomy with oophorectomy Family History Mother Heart disease Social History Smoking/Tobacco Use Status: Never Smoking risk assessment performed?: Yes Alcohol Intake: current Alcohol Intake frequency: holidays/special occasions only Drug use: Never Substance use type: does not use Housing: house Do you feel safe at home: Yes Do you feel safe in your relationship?: Yes Time Spent with Patient Time Spent with Patient: <45 minutes Time was spent: preparing to see the patient(eg.review tests), obtaining and/or reviewing separately otained hiistory, indepentently interpreting results and counseling the patient
--- NOTE | 2024-03-26 09:21 | PDOC.CMDIS ---
Date of service: 03/26/24 Time of Service: 09:21 LACE Index Scoring Tool Questions: Length of Stay (in days): 1 Was the patient admitted via the E.D.?: No E.D. Visits: 0 Answers: Total Score: 1 Risk of Readmission: Low Risk Care Management Discharge Plan Reason for Hospitalization: Left Hip DJD Discharge Plan: Terra will return home with her , per PT, she is ambulating independently and independent with her ADLs. She is retired and her continues to work full-time so her sister will be staying with her during the day. Terra will follow up with her surgeon, PCP and plan of care including activity restrictions, new medications and dressing changes; refer to MD note for detailed information. Patient/Family Education Needs: Review discharge instructions, discuss Ask Me Three. SDOH Health Related Social Needs: No Data to Display
--- NOTE | 2024-03-26 09:22 | INDS_ITS ---
PT Notes Visit Reasons: Left hip DJD Inpatient Physical Therapy Discharge Summary Date: 03/26/2024 Precautions: WBAT LLE Patient Profile/Admitting Diagnosis: Terra is 68 yo female referred for PT evaluation s/p L DRE anterior approach on 03/25/2024 under spinal anesthesia d/t OA. Post op complicated by pain, nausea and lightheadedness. She was admitted overnight on observation status. Social History/Home Situation: Patient lives with her in a ranch style home with 3 steps to enter with bilateral rails. She is independent ambulating independent ADLs. She is retired. Her works full-time. Her sister will be staying with her during the day. Current Functional Limitations: impaired bed mobility, transfers, ambulation, ADLs, IADLs Equipment Owned/DME: cane/RW Subjective: Terra states that she is feeling much better than yesterday. She's been up to the commode with nursing without any lightheadedness, etc. She's anxious to return home today. Objective: General Observation: resting in bed, no lines. Mental Status: A&Ox3 .Pleasant and cooperative throughout. Pain: Left hip /10 left hip Bed Mobility/Transfers: supine - sit: independent with support from RLE sit-supine: independent with support from RLE scooting Independent sit - stand : independent stand to sit: independent Gait: ambulates 150' x 2 with FWW, supervision only. Stairs: manages therapeutic stairs 6x2, 4x3 with bilat UE support to rails, supervision only. Balance: Static Sitting: Normal Dynamic Sitting: good- Static Standing: good Dynamic Standing: Fair - Special Tests: Mobility Limitations Standardized Measure [facility] AM-PAC 6 clicks Basic Mobility Inpatient Short Form: Raw Score: 24 CMS Score: 0% impairment Informed Consent/Education: Patient instructed in purpose of PT consult and plan of care. Therapeutic Exercises ([id number]) (20 minutes): Patient instructed in initial home exercise program including ankle pumps, glutes sets, quad sets and seated long arc quads. Provided with hand out for home completion. Ambulated 150'x2 for improved activity tolerance Therapeutic Activities ([id number]) (10 minutes) Instructed in management of FWW. Patient has FWW at home, which was fitted to her by PT following TKA. Instructed in stair management. Requires visual and verbal cues, and demonstrates excellent safety and carryover. Assessment: Patient is a 68year old female referred to physical therapy services with the diagnosis of L DRE. Patient presented with s/s consistent with post-op status, although complicated by hypotension and nausea post- operatively. She was only able to participate in PT to a limited degree yesterday, but today demonstrates improved independence and safety. She is appropriate for d/c home once medically stable. Goals: Goals X1 -2 days 1. Supine-Sit [independent] (MET) 2. Sit-Supine [independent] (MET) 3. Sit-Stand [independent](MET) 4. Stand-Sit [independent](MET) 5. Bed-Chair [supervision with FFW](MET) 6. Chair-Bed [supervision with FFW](MET) 7. Gait [supervision with FF W greater than 50 feet x 2](MET) 8. Stairs [supervised 3 stairs with 2 rails](MET) 9. Independent with home exercise program [](MET) 10.Balance good minus(MET) Plan of Care/Treatment Plan: Discharge from PT in acute care setting DISCHARGE RECOMMENDATIONS: [x] Home with outpatient PT when medically stable TREATMENT CODE/TIME: (55510, 17982) [id number] Terese Torres, PT, DPT [facility]
--- NOTE | 2024-03-26 09:25 | DSE_ITS ---
Date of service: 03/25/24 Time of Service: 11:33 Discharge Plan Disposition Patient Disposition: Home Condition: Good Discharge Details Reason For Visit: Left hip DJD Admit Date/Time: 03/25/24 17:00 Admit Provider: Tee Ireland Attending Provider: Tee Ireland Primary Care Provider: [facility] Course Hospital Course: Patient was admitted to the medical/surgical floor following the procedure. The surgery was tolerated well without any notable medical, surgical, or anesthetic complications, however, she had notable lightheadedness and nausea postoperatively.. Mobilization began postoperatively but was postponed to postop day #1 where she did much better and was able to ambulate overnight with nursing. She was voiding spontaneously. Vitals were stable. Physical therapy worked with the patient and was cleared for discharge home. No acute medical issues. Pain was controlled on oral regimen. Home Meds and New Rx's Prescriptions: New celecoxib [Celebrex] 200 mg capsule 200 mg PO BID PRNQty: 60 0RF Rx Instructions: Take one tablet twice daily for pain and inflammation aspirin 81 mg tablet,delayed release (DR/EC) 81 mg PO BID 30 Days Qty: 60 0RF acetaminophen 500 mg tablet 1,000 mg PO Q8H PRN Qty: 90 0RF Rx Instructions: Take two tablets up to every 8 hours as needed for pain dexamethasone 4 mg tablet 4 mg PO DAILY Qty: 2 0RF Rx Instructions: Take one tablet once daily for two days docusate sodium [Colace] 100 mg capsule 100 mg PO BID Qty: 30 0RF oxycodone 5 mg tablet 5 mg PO Q6H PRNQty: 12 0RF Rx Instructions: Take one tablet up to every 6 hours as needed for severe postoperative pain Continued albuterol sulfate [Ventolin HFA] 90 mcg/actuation HFA aerosol inhaler 2 puff inhalation Q6H PRN fluticasone propionate [Allergy Relief (fluticasone)] 50 mcg/actuation spray,suspension 1 spray intranasal DAILY Rx Instructions: administer into each nostril omeprazole 20 mg capsule,delayed release(DR/EC) 20 mg PO DAILY cyclobenzaprine 5 mg tablet 5 - 10 mg PO QHS rosuvastatin [Crestor] 10 mg tablet 10 mg PO DAILY ergocalciferol (vitamin D2) 1,250 mcg (50,000 unit) capsule 1,250 mcg PO QWEEK cholecalciferol (vitamin D3) 25 mcg (1,000 unit) capsule 25 mcg PO DAILY acetaminophen [Tylenol] 325 MG tablet 650 mg PO Q4H PRN estradiol 0.5 MG tablet 0.5 mg PO DAILY levothyroxine 100 MCG tablet 100 mcg PO DAILY Discontinued celecoxib [Celebrex] 100 mg capsule 100 mg PO BID ibuprofen 200 MG capsule 200 mg PO Q4H PRN Discharge Instructions Additional Instructions: Total Hip Discharge Instructions Activity: The most important activity is to walk. You should try to take short walks a few times a day. You have no restrictions on movement or positioning, but do not try to force what you do. You will find some stiffness and weakness with hip flexion (lifting your knee). Do not try to strengthen this too early, continue to practice walking and stairs and this will come. - Outpatient physical therapy can be helpful to help return you to a normal gait and improve your flexibility and strength. This can start around 2 weeks. For some patients, it?s not necessary. Usually this is determined at the time of discharge or at the first post-operative visit. - You should wear the ROMERO hose on both legs for 2 weeks. Dressing: Keep the surgical dressing in place for at least one week. After the first week it may be removed and replace with light gauze and tape or nothing. It may get wet after 3 days but avoid soaking the dressing. If it gets wet, just lightly pat dry. It is important to always keep some gauze between skin folds, especially when you are sitting. Spend some time with the wound exposed when you are lying flat as the incision does wrinkle onto itself. Medications: - You should take Tylenol and an anti-inflammatory Celebrex as your primary pain control medications. If the Celebrex is too expensive or not covered, please call the office for another alternative (Advil/Ibuprofen or Naproxen/Aleve). - You have been prescribed a stronger pain medication Oxycodone for breakthrough pain, take as needed as prescribed. - You take a stomach acid reduction agent Omeprazole at baseline - continue with this medication to help reduce stomach acid and reflux. - You have also been prescribed Decadron to help with post-operative nausea and pain. You will take this for two days starting tomorrow. - You will be taking Aspirin 81mg twice a day for DVT prevention unless instructed otherwise. - If you have constipation you should take Colace (which has been prescribed) or Miralax (which is available [id number]). It takes most people 3-4 days to have a bowel movement. Follow-up: 2 weeks If you have any acute concerns or questions, please do not hesitate to contact the office at [phone]. You may contact Dr. Ireland with any questions after hours through the hospital at [phone] or on his cell phone at [phone]. Stand Alone Forms: Anesthesia Discharge Inst., Karol Carlos ([facility]), Nursing Discharge Form Referrals: Tee Ireland MD [ [facility] STAFF PHYSICIAN] - 04/07/24 11:00 am Activity:: Activity as Tolerated Equipment/Supplies:: Walker Diet:: As Tolerated Discharge Orders Discharge Orders: Discharge Order (Routine); Ordered 03/26/24 Ordered By: Tee Ireland Discharge Data Discharge Date/Time-TO BE ENTERED AT DEPARTURE: 03/26/24 10:27 DS: Summary Time Spent with Patient providing and/or coordinating discharge services: Less than 30 minutes Status at Discharge Functional status at discharge: uses cane/walker Overall status at discharge: patient is progressing back to baseline Mental Status: mental status grossly normal Speech and Movement: speech and movement normal Mood: congruent mood Affect: normal affect Quality:SDOH Health Related Social Needs: No Data to Display Exam Psych Mental Status: mental status grossly normal Speech and Movement: speech and movement normal Mood: congruent mood Affect: normal affect DS: Data Vitals/I&O Vitals and I&O: Vital Signs Temperature 97.2 F L 03/25/24 08:35 Pulse 78 03/25/24 08:35 Pulse Rhythm Regular 03/25/24 08:35 Respiratory Rate 16 03/25/24 08:35 Respiratory Depth Normal 03/25/24 08:35 Blood Pressure 137/87 03/25/24 08:35 Pulse Oximetry 97 03/25/24 08:35 Oxygen Delivery Method Room Air 03/25/24 08:35 Oxygen Flow Rate 0 03/25/24 08:35 Pain Level 0 03/25/24 08:35 Intake & Output 03/24/24 03/24/24 03/25/24 11:59 23:59 11:59 Weight 185 lb 13.595 oz PFSH All Active Problems History of total left hip arthroplasty (Acute 03/25/24) Medical History Depression with anxiety Goiter, nontoxic, multinodular Vitamin D deficiency Hearing loss, bilateral COLE (obstructive sleep apnea) Adenocarcinoma of cecum Abnormal mammogram of right breast Hot flashes Liver nodule GERD (gastroesophageal reflux disease) Left hip pain Chronic low back pain Chronic sinusitis Osteoarthritis Left knee pain Aortic dilatation Rib pain on left side Left breast mass Breast pain, left COVID-19 Left groin pain Family history of heart disease Sinusitis Lumbosacral spondylosis with radiculopathy Hx of colon cancer, stage IV Hypothyroidism Fibromyalgia 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 Essential tremor Depression with anxiety RA (rheumatoid arthritis) Surgical History S/P BONNIE-BSO (total abdominal hysterectomy and bilateral salpingo-oophorectomy) ex-lap with omentectomy and HIPEC 02/2017 Mediport placement 10/2016 Abdominal hysterectomy Colectomy Right Hemicolectomy 09/2016 Bilateral salpingectomy with oophorectomy Family History Mother Heart disease Social History Smoking/Tobacco Use Status: Never Smoking risk assessment performed?: Yes Alcohol Intake: current Alcohol Intake frequency: holidays/special occasions only Drug use: Never Substance use type: does not use Housing: house Do you feel safe at home: Yes Do you feel safe in your relationship?: Yes Time Spent with Patient Time Spent with Patient: <45 minutes Time was spent: preparing to see the patient(eg.review tests), indepentently interpreting results and counseling the patient
[2024-03-26] MEDS: Normal Saline Flush 10 ML SYR IVP (09:54)
--- NOTE | 2024-03-26 13:18 | RESPIRATORY ---
03/26/2024 Patient states she has a home CPAP for her COLE but has not been wearing it lately due to pain, which has her rolling around in bed and makes the mask a nuisance. Pt does not know her settings but she does not use O2 and uses [employer] as her DME.
== END 2024-03-26 10:27 | disposition home or self-care (01) ==
LOC: SUR 11:27 → MS 03-26 08:15 → SUR 03-31 10:20 → MS 03-31 10:21
PROVIDERS: Admitting Provider Student in an Organized Health Care Education/Training Program; PCP Internal Medicine; Visit Provider Student in an Organized Health Care Education/Training Program
PROC: (CPT 27130; principal; 2024-03-25 13:00)
DX: M16.12 Unilateral primary osteoarthritis, left hip (principal); F41.8 Other specified anxiety disorders; E04.2 Nontoxic multinodular goiter; E55.9 Vitamin D deficiency, unspecified; G47.33 Obstructive sleep apnea (adult) (pediatric); K21.9 Gastro-esophageal reflux disease without esophagitis; M54.50 Low back pain, unspecified; G89.29 Other chronic pain; Z85.038 Personal history of other malignant neoplasm of large intestine; G25.0 Essential tremor
CPT/HCPCS: 27130; 20985; 96365; 96366; 96375; 96376; 97110; 97161; 97530; 73501; C1776; G0378; J0690; J1100; J1805; J1885; J2250; J2371; J2401; J2405; J2704; J3010; J8540

== ENCOUNTER 2024-04-07 15:46 | Outpatient (CLI) | payer MEDICARE, MEDICAID, SELFPAY ==
--- NOTE | 2024-04-07 11:40 | DI.RAD_ITS ---
Exam(s) XR HIP LT COMPLETE AP PELVIS EXAM: XR HIP LT COMPLETE AP PELVIS CLINICAL HISTORY: F/U LEFT DRE. TECHNIQUE: 2D digital imaging was performed. Three images were obtained. AP, lateral and oblique vi ews were obtained. COMPARISON: CR XR PELVIS AP from 03/17/2024 XA XR HIP LT IN OR from 03/25/2024 FINDINGS: BONES: There are stable post operative changes of a left total hip replacement present. No fracture or dislocation. JOINTS: The orthopedic hardware is in good position. No evidence of hardware loosening. SOFT TISSUE: Normal. IMPRESSION: Stable left total hip replacement. DATA REPOSITORY: RADIATION DOSE DELIVERED:
== END 2024-04-07 15:47 | disposition home or self-care (01) ==
LOC: DIORS 15:47
PROVIDERS: PCP Internal Medicine; Referring Provider Internal Medicine; Visit Provider Physician Assistant
DX: Z96.642 Presence of left artificial hip joint (principal); Z47.1 Aftercare following joint replacement surgery
CPT/HCPCS: 73502

== ENCOUNTER → 2024-05-05 10:20 | Outpatient (BNVA) | payer MEDICARE, MEDICAID, SELFPAY | PROVIDERS: PCP Internal Medicine; Referring Provider Internal Medicine; Visit Provider Student in an Organized Health Care Education/Training Program | DX: Z47.1 Aftercare following joint replacement surgery (principal); Z96.642 Presence of left artificial hip joint ==

== ENCOUNTER 2024-06-16 15:35 | Outpatient (CLI) | payer MEDICARE, MEDICAID, SELFPAY ==
--- NOTE | 2024-06-16 11:45 | DI.RAD_ITS ---
Exam(s) XR KNEE RT 4V AP,LAT,JOSE,PAT EXAM: XR KNEE RT 4V AP,LAT,JOSE,PAT CLINICAL HISTORY: Eval R knee. TECHNIQUE: 2D digital imaging was performed. Three views. COMPARISON: CR XR KNEE 4 VIEW RIGHT from 12/13/2021 CR XR KNEE 4 VIEW LEFT from 02/22/2022 FINDINGS: BONES: No acute fracture is present. No bony destructive lesion is seen. JOINTS: Moderate to severe narrowing of the medial femoral tibial joint space and periarticular spurr ing. Stable appearance from prior. Mild degenerative changes at the patellofemoral joint. Lateral femoral tibial joint space is maintained and shows some periarticular spurring. No joint effusion is seen. SOFT TISSUE: Normal. IMPRESSION: Degenerative changes, greatest of the medial femoral tibial compartment. DATA REPOSITORY: RADIATION DOSE DELIVERED:
== END 2024-06-16 15:36 | disposition home or self-care (01) ==
LOC: DIORS 15:35
PROVIDERS: PCP Internal Medicine; Referring Provider Internal Medicine; Visit Provider Student in an Organized Health Care Education/Training Program
DX: Z47.1 Aftercare following joint replacement surgery; M17.11 Unilateral primary osteoarthritis, right knee; Z96.652 Presence of left artificial knee joint
CPT/HCPCS: 20610; J1010; 73564

== ENCOUNTER → 2024-11-24 09:49 | Outpatient (BNVA) | payer MEDICARE, MEDICAID, SELFPAY | PROVIDERS: PCP Internal Medicine; Referring Provider Internal Medicine; Visit Provider Student in an Organized Health Care Education/Training Program | DX: M17.11 Unilateral primary osteoarthritis, right knee (principal) | CPT/HCPCS: 20610; J1010 ==

== ENCOUNTER 2024-11-27 09:18 | Outpatient (REF) | payer MEDICARE, MEDICAID, SELFPAY ==
[2024-11-27 19:37] LABS: Abs Immature Grans 0.06 10^3/uL (0.0-0.06); Absolute Basophil Count 0.07 10^3/uL (0.0-0.2); Absolute Eosinophil Count 0.08 10^3/uL (0.0-0.7); Absolute Lymphocyte Count 3.53 10^3/uL (1.2-3.4); Absolute Monocyte Count 0.83 10^3/uL (0.1-0.8); Absolute Neutrophil Count 7.09 10^3/uL (1.2-6.7); Basophils % 0.6 %; Eosinophils % 0.7 %; HCT 46.7 % (36.0-46.0); Immature Grans % 0.5 %; Lymphocytes % 30.3 %; MCHC 32.1 % (32.0-36.0); MCV 90 fL (80-95); Monocytes % 7.1 %; Neutrophils % 60.8 %; Platelet Count 343 10^3/uL (130-400); RBC 5.18 10^6/uL (3.93-5.22); RDW 12.5 % (11.7-14.6); RDW-SD 41.4 fL; WBC 11.66 10^3/uL (4.4-10.8)
[2024-11-27 20:32] LABS: ALT 16 U/L (14-59); AST 12 U/L (15-37); Alkaline Phosphatase 97 U/L (46-116); Anion Gap 5.5 mmol/L (3-11); BUN 15 mg/dL (7-18); Bilirubin, Total 0.5 mg/dL (0.2-1.0); CO2 32.5 mmol/L (21.0-32.0); CREATININE 0.9 mg/dL (0.55-1.02); Calcium 9.2 mg/dL (8.5-10.1); Chloride 107 mmol/L (98-107); Estimated GFR 69.64 (mL/min/1.73m2); Glucose 86 mg/dL (74-106); Potassium 4.3 mmol/L (3.5-5.1); Sodium 145 mmol/L (136-145); TSH 0.06 uIU/mL (0.36-3.74); Total Protein 7.4 g/dL (6.4-8.2); Vitamin D 25 Total 16 ng/mL (30-100)
[2024-11-27 20:49] LABS: FREE T4 0.96 ng/dL (0.76-1.46)
== END 2024-11-27 09:19 | disposition home or self-care (01) ==
LOC: NCHCN 09:18
PROVIDERS: PCP Internal Medicine; Visit Provider Physician Assistant
DX: E03.9 Hypothyroidism, unspecified (principal); E55.9 Vitamin D deficiency, unspecified; M06.9 Rheumatoid arthritis, unspecified
CPT/HCPCS: 80053; 82306; 84439; 84443; 85025

== ENCOUNTER → 2025-02-17 08:21 | Outpatient (BNVA) | payer MEDICARE, MEDICAID, SELFPAY | PROVIDERS: PCP Internal Medicine; Referring Provider Internal Medicine; Visit Provider Podiatrist | DX: M21.611 Bunion of right foot (principal); M21.612 Bunion of left foot; M20.21 Hallux rigidus, right foot; M20.22 Hallux rigidus, left foot; M21.70 Unequal limb length (acquired), unspecified site | CPT/HCPCS: 20600; J0702; J1100 ==

== ENCOUNTER 2025-02-27 12:10 | Outpatient (REF) | payer MEDICARE, MEDICAID, SELFPAY ==
[2025-02-27 20:24] LABS: TSH 0.49 uIU/mL (0.36-3.74); Vitamin D 25 Total 28 ng/mL (30-100)
[2025-03-02 09:54] LABS: Hepatitis C Ab w Rflx HCV PCR Negative (Negative)
== END 2025-02-27 12:11 | disposition home or self-care (01) ==
LOC: NCHCN 12:10
PROVIDERS: PCP Internal Medicine; Visit Provider Physician Assistant
DX: E03.9 Hypothyroidism, unspecified (principal); E55.9 Vitamin D deficiency, unspecified; Z11.59 Encounter for screening for other viral diseases
CPT/HCPCS: 82306; 86803; 84439; 84443

== ENCOUNTER → 2025-03-11 08:44 | Outpatient (BNVA) | payer MEDICARE, MEDICAID, SELFPAY | PROVIDERS: PCP Internal Medicine; Referring Provider Internal Medicine; Visit Provider Podiatrist | DX: M21.611 Bunion of right foot (principal); M21.612 Bunion of left foot; M20.21 Hallux rigidus, right foot; M20.22 Hallux rigidus, left foot; R25.2 Cramp and spasm; M21.70 Unequal limb length (acquired), unspecified site | CPT/HCPCS: 20600; J0702; J1100 ==

== ENCOUNTER 2025-06-10 09:52 | Outpatient (REF) | payer MEDICARE, MEDICAID, SELFPAY ==
[2025-06-10 20:57] LABS: TSH (W/Ref FT4) 0.46 uIU/mL (0.36-3.74)
== END 2025-06-10 09:53 | disposition home or self-care (01) ==
LOC: NCHCN 09:52
PROVIDERS: PCP Internal Medicine; Visit Provider Physician Assistant
DX: E03.9 Hypothyroidism, unspecified (principal)
CPT/HCPCS: 84443